=== PATIENT | male | born 1965 | race Caucasian/White ===

== ENCOUNTER 2021-03-25 18:50 | Day surgery (SDC) | payer OTHER ==
--- NOTE | 2021-03-25 19:38 | EDM.PDOC ---
ED HPI GENERAL MEDICAL PROBLEM - General Chief Complaint: ENT Problem Stated Complaint: HAS A PIECE OF ROAST BEEF STUCK IN ESOPHAGUS Time Seen by Provider: 03/25/21 19:28 - History of Present Illness INITIAL COMMENTS - FREE TEXT/NARRATIVE: 56-year-old male presents the emergency room with what he believes is a food foreign body stuck in his throat. Early this afternoon he was eating some roast beef and did not chew very good. The patient tries to drink water but eventually comes right back up he cannot drink but only a very small sip. Patient has not had problems with things get stuck in his throat in the past. He denies any other complaints at this time. Chest Pain Score (Numeric/FACES): 6 - Related Data Allergies Allergy/AdvReac Type Severity Reaction Status Date / Time No Known Allergies Allergy Verified 03/25/21 19:13 Home Meds: Home Meds Multivitamin [Multi-Day Vitamins] 1 tab PO ASDIRECTED 03/25/21 [History] Past Medical History HEENT History: Reports: Impaired Vision, Other (See Below) Other HEENT History: wears glasses Cardiovascular History: Reports: None Respiratory History: Reports: Other (See Below) Other Respiratory History: seasonal allergies Gastrointestinal History: Reports: GERD, Hemorrhoids Genitourinary History: Reports: None Musculoskeletal History: Reports: Other (See Below) Other Musculoskeletal History: foot surgery finger surgery Neurological History: Reports: None Psychiatric History: Reports: None Endocrine/Metabolic History: Reports: None Hematologic History: Reports: None Immunologic History: Reports: None Oncologic (Cancer) History: Reports: None Dermatologic History: Reports: None - Infectious Disease History Infectious Disease History: Reports: None - Past Surgical History Head Surgeries/Procedures: Reports: None Social & Family History - Family History Family Medical History: No Pertinent Family History - Tobacco Use Tobacco Use Status *Q: Never Tobacco User - Caffeine Use Caffeine Use: Reports: Coffee - Recreational Drug Use Recreational Drug Use: No ED ROS GENERAL - Review of Systems Review Of Systems: See Below Constitutional: Reports: No Symptoms HEENT: Reports: Other (Swallowing difficulties) Respiratory: Reports: No Symptoms Cardiovascular: Reports: No Symptoms GI/Abdominal: Reports: Other (See HPI) ED EXAM, GENERAL - Physical Exam Exam: See Below Exam Limited By: No Limitations General Appearance: Alert, No Apparent Distress Head: Atraumatic, Normocephalic Neck: Normal Inspection, Supple, Non-Tender, Full Range of Motion Respiratory/Chest: No Respiratory Distress, Lungs Clear, Normal Breath Sounds Cardiovascular: Regular Rate, Rhythm, No Edema, No Murmur GI/Abdominal: Normal Bowel Sounds, Soft, Non-Tender Back Exam: Normal Inspection. No: CVA Tenderness (L), CVA Tenderness (R) Course - Vital Signs Last Recorded V/S: Last Vital Signs Temp 36.4 C 03/25/21 19:16 Pulse 64 03/25/21 19:16 Resp 18 03/25/21 19:16 BP 163/98 H 03/25/21 19:16 Pulse Ox 99 03/25/21 19:16 - Orders/Labs/Meds Orders: Active Orders 24 hr Category Date Time Status Admission Status [Patient Status] [ADT] Routine ADT 03/25/21 21:02 Active Schedule Procedure [COMM] Stat Oth 03/25/21 21:03 Ordered Meds: Medications Discontinued Medications Generic Name Dose Route Start Last Admin Trade Name Rishiq PRN Reason Stop Dose Admin Glucagon 1 mg 03/25/21 19:40 03/25/21 19:56 Glucagon,Human Recombinant 1 Mg Vial IVPUSH 03/25/21 19:41 1 mg ONETIME ONE Administration Lorazepam 1 mg 03/25/21 19:40 03/25/21 19:53 Lorazepam 2 Mg/Ml Sdv IVPUSH 03/25/21 19:41 1 mg ONETIME ONE Administration - Re-Assessments/Exams Free Text/Narrative Re-Assessment/Exam: 03/25/21 21:22 Trial the patient with some Ativan and glucagon 1 mg of each and we really have not had great success with this. Dr. Rutherford did evaluate the patient and is anticipating removal of the foreign body. Departure - Departure Time of Disposition: 21:29 Disposition: DC/Tfer to [facility] Clinical Impression: Esophagus, foreign body - Discharge Information Sepsis Event Note (ED) - Evaluation Sepsis Screening Result: No Definite Risk - Focused Exam Vital Signs: Vital Signs Temp Pulse Resp BP Pulse Ox 03/25/21 19:16 36.4 C 64 18 163/98 H 99 - My Orders Last 24 Hours: My Active Orders 03/25/21 21:02 Admission Status [Patient Status] [ADT] Routine 03/25/21 21:03 Schedule Procedure [COMM] Stat - Assessment/Plan Last 24 Hours: My Active Orders 03/25/21 21:02 Admission Status [Patient Status] [ADT] Routine 03/25/21 21:03 Schedule Procedure [COMM] Stat
[2021-03-25] MEDS ORDERED: LORazepam 2 MG/ML SDV IVPUSH ONE (19:40)
[2021-03-25] MEDS ORDERED: Glucagon,Human Recombinant 1 MG Vial IVPUSH ONE (19:40)
--- NOTE | 2021-03-25 21:28 | PCM.PREANE ---
Preanesthetic Assessment - Procedure Proposed Procedure: Food Bolus Removal/EGD - Anesthesia/Transfusion/Family Hx Anesthesia History: Prior Anesthesia Without Reaction Family History of Anesthesia Reaction: No Transfusion History: No Prior Transfusion(s) Intubation History: Unknown - Review of Systems General: No Symptoms Pulmonary: No Symptoms (ETOH: occasionaly) Cardiovascular: No Symptoms Gastrointestinal: No Symptoms (GERD), Difficulty Swallowing Neurological: No Symptoms Other: Reports: None, Easy Bruising, Sinus Problem (seasonal allergies) - Physical Assessment NPO Status Date: 03/25/21 NPO Status Time: 12:00 Vital Signs: Last Vital Signs Temp 36.4 C 03/25/21 19:16 Pulse 64 03/25/21 19:16 Resp 18 03/25/21 19:16 BP 163/98 H 03/25/21 19:16 Pulse Ox 99 03/25/21 19:16 Height: 1.93 m Weight: 111.856 kg ASA Class: 1E Mental Status: Alert & Oriented x3 Airway Class: Mallampati = 2 Dentition: Reports: Normal Dentition, Caries Thyro-Mental Finger Breadths: 3 Mouth Opening Finger Breadths: 3 ROM/Head Extension: Full Lungs: Clear to Auscultation, Normal Respiratory Effort Cardiovascular: Regular Rate, Regular Rhythm, No Murmurs - Allergies Allergies/Adverse Reactions: Allergies Allergy/AdvReac Type Severity Reaction Status Date / Time No Known Allergies Allergy Verified 03/25/21 19:13 - Anesthesia Plan Pre-Op Medication Ordered: None - Acknowledgements Anesthesia Type Planned: General Anesthesia Pt an Appropriate Candidate for the Planned Anesthesia: Yes Alternatives and Risks of Anesthesia Discussed w Pt/Guardian: Yes Pt/Guardian Understands and Agrees with Anesthesia Plan: Yes PreAnesthesia Questionnaire HEENT History: Reports: Impaired Vision, Other (See Below) Other HEENT History: wears glasses Cardiovascular History: Reports: None Respiratory History: Reports: Other (See Below) Other Respiratory History: seasonal allergies Gastrointestinal History: Reports: GERD, Hemorrhoids Genitourinary History: Reports: None Musculoskeletal History: Reports: Other (See Below) Other Musculoskeletal History: foot surgery finger surgery Neurological History: Reports: None Psychiatric History: Reports: None Endocrine/Metabolic History: Reports: None Hematologic History: Reports: None Immunologic History: Reports: None Oncologic (Cancer) History: Reports: None Dermatologic History: Reports: None - Infectious Disease History Infectious Disease History: Reports: None - Past Surgical History Head Surgeries/Procedures: Reports: None - SUBSTANCE USE Tobacco Use Status *Q: Never Tobacco User Recreational Drug Use History: No - HOME MEDS Home Medications: Home Meds Multivitamin [Multi-Day Vitamins] 1 tab PO ASDIRECTED 03/25/21 [History] - CURRENT (IN HOUSE) MEDS Current Meds: Current Medications Discontinued Medications Glucagon (Glucagon,Human Recombinant 1 Mg Vial) 1 mg IVPUSH ONETIME ONE Stop: 03/25/21 19:41 Last Admin: 03/25/21 19:56 Dose: 1 mg Documented by: Lorazepam (Lorazepam 2 Mg/Ml Sdv) 1 mg IVPUSH ONETIME ONE Stop: 03/25/21 19:41 Last Admin: 03/25/21 19:53 Dose: 1 mg Documented by:
--- NOTE | 2021-03-25 21:29 | PCM.CONS ---
H&P History of Present Illness - General Date of Service: 03/25/21 Admit Problem/Dx: Admission Diagnosis/Problem Admission Diagnosis/Problem Foreign body in esophagus Source of Information: Patient History Limitations: Reports: No Limitations - History of Present Illness Initial Comments - Free Text/Narative: Patient ate a roast beef sandwich today at noon and a piece of it got stuck. He has not been able to tolerate anything since that time. He has history of dysphagia but it is rare he says, about twice a year something will get stuck for a short time and will go down on its own. No prior esophageal or abdominal surgeries. otherwise healthy, no cardiopulm issues. He presented to the ED, medical management failed. He could not keep 2 Ozs of water down during my exam. Onset of Symptoms: Reports: Sudden Duration of Symptoms: Reports: Hour(s): (9) Location: Reports: Chest Severity: Mild Improves with: Reports: None Worsens with: Reports: None Associated Symptoms: Reports: Nausea/Vomiting Chest Pain Score (Numeric/FACES): 6 - Related Data Allergies/Adverse Reactions: Allergies Allergy/AdvReac Type Severity Reaction Status Date / Time No Known Allergies Allergy Verified 03/25/21 19:13 Home Medications: Home Meds Multivitamin [Multi-Day Vitamins] 1 tab PO ASDIRECTED 03/25/21 [History] Past Medical History HEENT History: Reports: Impaired Vision, Other (See Below) Other HEENT History: wears glasses Cardiovascular History: Reports: None Respiratory History: Reports: Other (See Below) Other Respiratory History: seasonal allergies Gastrointestinal History: Reports: GERD, Hemorrhoids Genitourinary History: Reports: None Musculoskeletal History: Reports: Other (See Below) Other Musculoskeletal History: foot surgery finger surgery Neurological History: Reports: None Psychiatric History: Reports: None Endocrine/Metabolic History: Reports: None Hematologic History: Reports: None Immunologic History: Reports: None Oncologic (Cancer) History: Reports: None Dermatologic History: Reports: None - Infectious Disease History Infectious Disease History: Reports: None - Past Surgical History Head Surgeries/Procedures: Reports: None Social & Family History - Family History Family Medical History: No Pertinent Family History - Tobacco Use Tobacco Use Status *Q: Never Tobacco User - Caffeine Use Caffeine Use: Reports: Coffee - Recreational Drug Use Recreational Drug Use: No H&P Review of Systems - Review of Systems: Review Of Systems: See Below General: Reports: No Symptoms HEENT: Reports: No Symptoms Pulmonary: Reports: No Symptoms Cardiovascular: Reports: No Symptoms Gastrointestinal: Reports: No Symptoms Genitourinary: Reports: No Symptoms Musculoskeletal: Reports: No Symptoms Skin: Reports: No Symptoms Exam - Exam Exam: See Below - Vital Signs Vital Signs: Last Vital Signs Temp 97.6 F 03/25/21 19:16 Pulse 64 03/25/21 19:16 Resp 18 03/25/21 19:16 BP 163/98 H 03/25/21 19:16 Pulse Ox 99 03/25/21 19:16 Weight: 111.856 kg - Exam General: Alert, Oriented Lungs: Clear to Auscultation, Normal Respiratory Effort Cardiovascular: Regular Rate, Regular Rhythm GI/Abdominal Exam: Soft, Non-Tender, No Organomegaly, No Distention Sepsis Event Note - Evaluation Sepsis Screening Result: No Definite Risk - Focused Exam Vital Signs: Vital Signs Temp Pulse Resp BP Pulse Ox 03/25/21 19:16 97.6 F 64 18 163/98 H 99 Consult PN Assessment/Plan Procedures: Procedures 3D RENDER W/INTRP POSTPROCES (04/23/15) COLONOSCOPY AND BIOPSY (05/12/16) COMPLETE CBC W/AUTO DIFF WBC (04/15/16) CT LOWER EXTREMITY W/O DYE (04/23/15) FLUOROSCOPY <1 HR PHYS/QHP (05/07/15) LIPID PANEL (04/15/16) METABOLIC PANEL TOTAL CA (04/15/16) MR-STAPH DNA AMP PROBE (05/07/15) MRI JOINT UPR EXTREM W/O DYE (11/18/16) ROUTINE VENIPUNCTURE (04/15/16) TISSUE EXAM BY PATHOLOGIST (05/12/16) TREAT FINGER FRACTURE EACH (05/07/15) URINALYSIS AUTO W/O SCOPE (04/15/16) Problem List Initiated/Reviewed/Updated: No Plan: Patient has esophageal food impaction. He attempted to drink during my exam and could not tolerate water. I recommended we proceed with EGD and esophageal disimpaction with possible dilation. We discussed risks, benefits and alternatives. SPecific risks discussed included bleeding, perforation. Patient denies taking any blood thinners. Questions were answered and informed consent was obtained.
[2021-03-25] MEDS ORDERED: Ondansetron 4 MG/2 ML SDV ONE (21:44)
[2021-03-25] MEDS ORDERED: fentaNYL 100 MCG/2 ML SDV ONE (21:44)
[2021-03-25] MEDS ORDERED: Succinylcholine/Sod PF 100 MG/5 ML SYRINGE IV ONE ×2 (21:44→22:11)
[2021-03-25] MEDS ORDERED: Propofol 200 MG/20 ML SDV ONE ×2 (21:44→22:07)
[2021-03-25] MEDS ORDERED: Lactated Ringers 1,000 ML ONE (21:44)
[2021-03-25] MEDS ORDERED: Lidocaine 1% 4 ML ONE (21:44)
[2021-03-25] MEDS ORDERED: Midazolam 1 MG/ML 2 ML SDV ONE (21:45)
[2021-03-25] MEDS ORDERED: HYDROmorphone 1 MG/ML Syringe ONE (22:08)
[2021-03-25] MEDS ORDERED: Ondansetron 4 MG/2 ML SDV IVPUSH PRN (22:22)
[2021-03-25] MEDS ORDERED: HYDROmorphone 0.5 MG/0.5 ML Syringe IVPUSH PRN (22:22)
[2021-03-25] MEDS ORDERED: fentaNYL 100 MCG/2 ML SDV IVPUSH PRN (22:22)
[2021-03-25] MEDS ORDERED: Dexamethasone 4 MG/ML SDV ONE (23:16)
--- NOTE | 2021-03-26 | PCM.POSTAN ---
POST ANESTHESIA ASSESSMENT - MENTAL STATUS Mental Status: Alert - VITAL SIGNS Vital Signs: Last Vital Signs Temp 98.3 03/25/212354 Pulse 80 03/25/215 Resp 18 03/25/212354 BP 142/73 03/25/212354 Pulse Ox 97% 03/25/212354 - RESPIRATORY Respiratory Status: Respiratory Rate WNL, Airway Patent, O2 Saturation Stable - CARDIOVASCULAR CV Status: Pulse Rate WNL, Blood Pressure Stable - GASTROINTESTINAL GI Status: No Symptoms - POST OP HYDRATION Hydration Status: Adequate & Stable
--- NOTE | 2021-03-26 00:11 | PCM48HPAN ---
Post Anesthesia Note - EVALUATION WITHIN 48HRS OF ANESTHETIC Vital Signs in Normal Range: Yes Patient Participated in Evaluation: Yes Respiratory Function Stable: Yes Airway Patent: Yes Cardiovascular Function Stable: Yes Hydration Status Stable: Yes Pain Control Satisfactory: Yes Nausea and Vomiting Control Satisfactory: Yes Mental Status Recovered: Yes Vital Signs: Last Vital Signs Temp 36.8 C 03/25/21 23:55 Pulse 64 03/25/21 19:16 Resp 18 03/25/21 23:55 BP 142/73 H 03/25/21 23:55 Pulse Ox 97 03/25/21 23:55
--- NOTE | 2021-03-26 00:26 | PROC ---
DATE OF OPERATION: 03/25/2021 SURGEON: Lee Rutherford MD PREOPERATIVE DIAGNOSIS: Esophageal food impaction. POSTOPERATIVE DIAGNOSIS: Esophageal food impaction. PROCEDURE: Esophagogastroduodenoscopy with food bolus disimpaction from the esophagus and biopsies. ANESTHESIA: Monitored general anesthesia. ESTIMATED BLOOD LOSS: Minimal. FINDINGS: 1. Large food bolus in the distal esophagus. 2. 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 3. A few stomach fundus polyps biopsied. 4. Hyperplastic mucosa lesions in the duodenal bulb, biopsied. INDICATION AND CONSENT: Mr. Golden is a 56-year-old male with intermittent dysphagia. The patient had roast beef today that got stuck. 6 hours later, he presented to the emergency department with the symptoms of dysphagia. The patient is unable to even tolerate his own saliva. Because of the severe symptoms, the patient was treated medically in the emergency department, but did not resolve. I was asked to see the patient and recommended EGD with removal of food bolus from the esophagus. We discussed risks, benefits, and alternatives, and informed consent was obtained. DETAILS OF PROCEDURE: The patient was taken to the procedure room, placed in supine position and then general anesthesia was induced. The patient was placed in the left lateral decubitus, slight decubitus and then performed EGD. Scope was inserted into the mouth and taken down through the esophagus. The proximal and mid esophagus were normal in appearance. In the distal esophagus, there was a large food bolus at about 38 cm from the incisors. Attempts were made to push the food bolus down into the stomach, but this failed. Therefore, using pronged forceps, we removed the food bolus, which was a piece of steak piecemeal fashion until it was small enough to enter into the stomach. Of note, this took about 1.5 hours to do due to really large nature of the food bolus and difficult to removing it. Once this was dislodged, I went into the stomach, examined the stomach. We noted a few polyps in the fundus, but the rest of the stomach was normal. We went into the duodenum. In the duodenal bulb, there was some hyperplastic mucosa. The first and second portion of duodenum were normal. The hyperplastic mucosa in the duodenal bulb was biopsied with cold forceps. Polyps in the fundus were biopsied with cold forceps and there was about 1 cm stenosis at the GE junction. Scope was passing with gentle pressure. Mucosa appeared normal. This stenotic area was biopsied as well with cold forceps. EBL was minimal. Once this was done, air was suctioned out and scope was removed concluding the procedure. The patient to be observed overnight and to make sure he is tolerating fluids without any chest pain, and he will be discharged in the morning. The patient to follow up with me in clinic in 2 weeks. GENOVEVA /[id number] MTDD
[2021-03-26 07:38] VITALS: BP 142/104; PULSE 65
== END 2021-03-26 08:08 | disposition home or self-care (01) ==
LOC: JD.ED 18:50 → JD.SDS 21:02 → JD.MS 03-26 00:36 → JD.SDS 03-26 08:08
PROVIDERS: ATTEND Surgery
DX: K20.0 Eosinophilic esophagitis (principal); T18.128A Food in esophagus causing other injury, initial encounter; K22.2 Esophageal obstruction; K31.7 Polyp of stomach and duodenum; K21.9 Gastro-esophageal reflux disease without esophagitis; K31.89 Other diseases of stomach and duodenum
CPT/HCPCS: 43239; 43247; J0330; J1100; J1170; J1610; J2060; J2250; J2704; J7120; 00731; 99140; J2405; J3010